=== PATIENT | female | born 1995 | race Caucasian/White ===

== ENCOUNTER 2019-06-15 06:25 | Inpatient (IN) ==
[2019-06-15] MEDS ORDERED: NS 100 ML IV 100 ML IV ONE ×3 (06:31→15:08)
[2019-06-15] MEDS ORDERED: D5LR 1L W PITOCIN 10 UNITS/L 10 UNITS/1,000 ML BAG IV ONE (06:31)
[2019-06-15] MEDS ORDERED: D5 1/2 NS 1000 ML 1,000 ML IV ONE ×2 (06:32→18:02)
[2019-06-15] MEDS ORDERED: AMPICILLIN VIAL 2 GRAM ONE (06:32)
--- NOTE | 2019-06-15 07:08 | DR.OB ---
OB Quick Note - Assessment/Plan Assessment/Plan: L&D 06/15/19 at 7:00am S-No complaint. O-Afebrile,VSS EMI=332 with good LTV, +accel, no decel. CTX=none CVX=2cm/50%/-1/VTX AROM with clear fluid. IUPC and FSE placed. A-IUP at 40 3/7 weeks for induction +GBS Abnormal quad screen P-Begin pitocin induction IV ABX in labor Anticipate
[2019-06-15] MEDS ORDERED: MORPHINE SULFATE INJ 2 MG INJ IVP PRN (07:25)
[2019-06-15] MEDS ORDERED: AMPICILLIN VIAL 2 GRAM 2 G in NS 100 ML IV + SPIKE MINIBAG* 100 ML IV SCH (07:25)
[2019-06-15] MEDS ORDERED: PHENERGAN INJ 25 MG IM PRN ×2 (07:25→20:28)
[2019-06-15] MEDS ORDERED: D5LR 1L W PITOCIN 10 UNITS/L 10 UNITS/1,000 ML BAG IV PRN (07:25)
[2019-06-15] MEDS ORDERED: PITOCIN IVP ONE (07:25)
[2019-06-15] MEDS ORDERED: NUBAIN INJ 200 MG VIAL MULTIDOSE IVP PRN (07:25)
[2019-06-15] MEDS ORDERED: REGLAN INJ 10 MG VIAL IVP PRN (07:25)
[2019-06-15] MEDS: VSL#3 PO SCH ×2 (07:56→09:35)
[2019-06-15] MEDS: AMPICILLIN VIAL 1 GRAM 1 G in NS 50 ML IV + SPIKE MINIBAG* 50 ML IV SCH ×4 (07:56→15:34)
[2019-06-15] MEDS: D5 1/2 NS 1000 ML 1,000 ML IV SCH ×2 (07:57→21:14)
[2019-06-15] MEDS ORDERED: AMPICILLIN VIAL 1 GRAM ONE ×2 (11:00→15:08)
[2019-06-15] MEDS ORDERED: LR 1000 ML IV 1,000 ML IV ONE (11:33)
[2019-06-15] MEDS ORDERED: FENTANYL INJ 100 mcg ONE (11:34)
[2019-06-15] MEDS ORDERED: NAROPIN EPIDURAL 0.2% + FENTANYL 90MCG 60 ML EPI ONE ×2 (11:34→17:49)
--- NOTE | 2019-06-15 12:09 | DR.OB ---
OB Quick Note - Assessment/Plan Assessment/Plan: L&D 06/15/19 at 12:00pm Pitocin=8mu/min. Ampicillin S-No complaint except pain with CTX. O-Afebrile,VSS FRL=674 with good LTV, +accel, no decel. CTX=q 1 1/2 to 2 min., about 45-65mmHg CVX=4cm/75%/-1 A-IUP at 40 3/7 weeks for induction +GBS Abnormal quad screen P-Cont. pitocin induction and ABX in labor Anticipate
[2019-06-15] MEDS ORDERED: EPHEDRINE SULFATE INJ ONE (13:41)
[2019-06-15] MEDS ORDERED: D5 1/2 NS 1L W PITOCIN 20 UNITS/L 20 UNITS/1,000 ML BAG IV ONE (15:09)
--- NOTE | 2019-06-15 17:09 | DR.OB ---
OB Quick Note - Assessment/Plan Assessment/Plan: L&D 06/15/19 at 5:00pm Pitocin=6mu/min. Ampicillin S-No complaint. s/p epidural. O-Afebrile,VSS OLY=633 with good LTV, +accel, no decel. CVX=8cm/100%/0 CTX=q 1 1/2 to 2 min., about 55-65mmHg A-IUP at 40 3/9 weeks for induction +GBS Abnormal quad screen P-Cont. pitocin induction/ABX in labor Anticipate
[2019-06-15] MEDS ORDERED: HYDROGEN PEROXIDE 3% ONE (20:27)
--- NOTE | 2019-06-15 20:28 | DR.OB ---
OB Quick Note - Assessment/Plan Assessment/Plan: Delivery Note [employer] 06/15/19 at 8:20pm Patient complete and pushing. Head delivered over midline episiotomy. No nuchal cord. Nose and mouth bulb suctioned. Body delivered over episiotomy. Cord clamped x 2 and cut. handed to attendant. Late meconium noted. Cord sent for gases. Placenta delivered spontaneously / intact / 3vessel cord. No CVX tears. A second degree midline episiotomy noted and repaired with 0- vicryl in usual fashion. Viable male infant, VTX/OA, wt=7'3" and 3/5/8, stable to NBN. Mother stable to RR. YSC=742pi.
[2019-06-15] MEDS ORDERED: D5 1/2 NS 1000 ML 1,000 ML with PITOCIN 20 UNITS IV SCH ×2 (21:00)
[2019-06-15] MEDS ORDERED: DERMOPLAST SPRAY TOP PRN (21:12)
[2019-06-15] MEDS ORDERED: AMBIEN PO PRN (21:12)
[2019-06-15] MEDS ORDERED: MILK OF MAGNESIA PO PRN (21:12)
[2019-06-15] MEDS ORDERED: ADACEL or BOOSTRIX TDaP VACCINE IM ONE (21:12)
[2019-06-16 05:23] LABS: HEMATOCRIT 30.3 % (36.0-47.0); HEMOGLOBIN 10.3 g/dL (12.0-16.0)
[2019-06-16] MEDS: PRENATAL PLUS PO SCH (09:41)
[2019-06-16] MEDS: MOTRIN TAB 800 MG PO PRN ×2 (12:45→20:51)
[2019-06-16] MEDS ORDERED: ADACEL or BOOSTRIX TDaP VACCINE IM ONE (13:00)
[2019-06-17] MEDS ORDERED: ZOFRAN TAB 4 MG ONE (04:27)
[2019-06-17] MEDS ORDERED: ZOFRAN TAB 4 MG PO ONE (04:27)
[2019-06-17] MEDS ORDERED: PHENERGAN INJ 25 MG IM ONE ×2 (05:47→05:48)
[2019-06-17] MEDS: PRENATAL PLUS PO SCH (10:49)
[2019-06-17 17:08] VITALS: BP 91/64
== END 2019-06-17 17:20 | disposition home or self-care (01) | DRG 807 ==
LOC: LD 06:25 → MED/SURG 21:28
PROVIDERS: ADMIT Specialist; ATTEND Specialist
DX: B95.1 Streptococcus, group B, as the cause of diseases classified elsewhere; O99.824 Streptococcus B carrier state complicating childbirth; Z23 Encounter for immunization; O28.5 Abnormal chromosomal and genetic finding on antenatal screening of mother; O70.1 Second degree perineal laceration during delivery; Z37.0 Single live birth; Z3A.40 40 weeks gestation of pregnancy
CPT/HCPCS: 36415; 59409; 85014; 85018; 90715; A4216; A4222; S0197; J0290; J2550; J2590; J3010; J3490; J7050; J7120; S0119; S0181; S5010

== ENCOUNTER 2020-09-22 22:47 | Inpatient (IN) ==
--- NOTE | 2020-09-22 23:03 | DR.PREG ---
HPI Time seen Time Seen by Provider: 09/22/20 22:59 HPI Comment HPI Comment: OB PATIENT/SEE DR. AMBROSE DOCUMENTATON. NOT SEEN BY ER PYSICIAN. PE Vital Signs Vitals: Blood Pressure [Right Arm] 91/64 Opioid Opioid Risk Tool Age (Jose E box if 16-45): Yes History of Preadolescent Sexual Abuse: No Total: 1 Total Score Risk Category: Low Risk Copyright: Srinivasan DISLA predicting aberrant behaviors Diagnosis Discharge Problem: Active labor Instructions Forms: Precautions for COVID19 Patient Portal Social Distancing
[2020-09-22] MEDS ORDERED: D5 1/2 NS 1000 ML 1,000 ML IV ONE (23:06)
[2020-09-22 23:12] LABS: BILIRUBIN,URINE NEGATIVE (NEGATIVE); BLOOD/HEMOGLOBIN,URINE 3+ (NEGATIVE); GLUCOSE, URINE NEGATIVE (NEGATIVE); KETONES,URINE NEGATIVE (NEGATIVE); LEUKOCYTE ESTERASE ,URINE 1+ (NEGATIVE); NITRITES,URINE NEGATIVE (NEGATIVE); PROTEIN,URINE NEGATIVE (NEGATIVE); UROBILINOGEN,URINE NORMAL (NORMAL)
[2020-09-22 23:13] VITALS: BMI 34.5
[2020-09-22] MEDS: D5 1/2 NS 1000 ML 1,000 ML IV SCH (23:19)
[2020-09-22 23:20] LABS: APPEARANCE,URINE CLEAR (CLEAR); BACTERIA,URINE TRACE /HPF (NEGATIVE); COLOR,URINE YELLOW (YELLOW); SQUAMOUS EPITHELIAL CELL,UR NUMEROUS /HPF (NEGATIVE)
[2020-09-22 23:21] LABS: AMORPHOUS SEDIMENT,UR 1+ /HPF (NEGATIVE)
[2020-09-22 23:22] LABS: AMNISURE ROM TEST THERE IS A RUPTURE (NO RUPTURE)
[2020-09-22 23:33] LABS: BASOPHILS # (AUTO) 0.1 X10^3/uL (0.0-0.1); BASOPHILS % (AUTO) 0.6 % (0.2-1.0); EOSINOPHILS # (AUTO) 0.1 x10^3/uL (0.0-0.2); EOSINOPHILS % (AUTO) 0.6 % (0.9-2.9); HEMATOCRIT 37.5 % (36.0-47.0); HEMOGLOBIN 12.3 g/dL (12.0-16.0); LYMPHOCYTES # (AUTO) 2.6 X10^3/uL (1.3-2.9); LYMPHOCYTES % (AUTO) 21.6 % (21.0-51.0); MEAN CORPUSCULAR HEMOGLOBIN 27.8 pg (27.0-34.0); MEAN CORPUSCULAR HGB CONC 32.8 g/dL (33.0-35.0); MEAN CORPUSCULAR VOLUME 84.7 fL (80.0-100.0); MEAN PLATELET VOLUME 9.4 fL (7.4-11.0); MONOCYTES # (AUTO) 0.7 x10^3/uL (0.3-0.8); MONOCYTES % (AUTO) 5.6 % (0.0-13.0); NEUTROPHILS # (AUTO) 8.8 x10^3/uL (2.2-4.8); NEUTROPHILS % (AUTO) 71.6 % (42.0-75.0); PLATELET COUNT 245 X10^3/uL (150.0-450.0); RED BLOOD COUNT 4.43 X10^6/uL (3.5-5.4); RED CELL DISTRIBUTION WIDTH 14.7 % (11.6-16.5); WHITE BLOOD COUNT 12.2 X10^3/uL (3.6-10.0)
[2020-09-22 23:41] LABS: ALANINE AMINOTRANSFERASE 20 Units/L (12-78); ALBUMIN 2.7 g/dL (3.4-5.0); ALKALINE PHOSPHATASE 127 Units/L (46-116); ASPARTATE AMINO TRANSFERASE 17 Units/L (15-37); BLOOD UREA NITROGEN 6 mg/dL (7-18); CALCIUM 9.1 mg/dL (8.5-10.1); CARBON DIOXIDE 23.4 mmol/L (21-32); CHLORIDE 102 mmol/L (98-107); COR CA(FOR HYPOALB) 10.1 mg/dL (8.5-10.1); CREATININE 0.63 mg/dL (0.55-1.02); SODIUM 138 mmol/L (136-145); TOTAL PROTEIN 7.2 g/dL (6.4-8.2); eGFR NON BLACK RACES > 60 (>60)
[2020-09-23] MEDS ORDERED: BETADINE SOLN ONE (00:03)
[2020-09-23] MEDS ORDERED: PITOCIN ONE (00:03)
[2020-09-23] MEDS ORDERED: D5 1/2 NS 1L W PITOCIN 20 UNITS/L 20 UNITS/1,000 ML BAG IV ONE (00:04)
[2020-09-23] MEDS ORDERED: D5LR 1L W PITOCIN 10 UNITS/L 10 UNITS/1,000 ML BAG IV ONE (00:04)
[2020-09-23] MEDS ORDERED: FENTANYL INJ 100 mcg ONE (00:05)
[2020-09-23] MEDS ORDERED: NAROPIN EPIDURAL 0.2% 100 ML ONE (00:05)
[2020-09-23] MEDS ORDERED: AMPICILLIN VIAL 2 GRAM ONE (00:05)
[2020-09-23] MEDS ORDERED: LR 1000 ML IV 1,000 ML IV ONE (00:05)
[2020-09-23] MEDS ORDERED: NS 100 ML IV 100 ML IV ONE ×2 (00:06→03:35)
--- NOTE | 2020-09-23 01:49 | DR.OB ---
OB Quick Note - Assessment/Plan Assessment/Plan: L&D 09/23/20 at 1:25am S-No complaint except CTX. O-Afebrile,VSS XIS=559 with good LTV, +accel, no decel. CTX=q 1 1/2 to 2 min., strong by palpation CVX=3cm/50%/-1/VTX SROM noted with clear fluid. IUPC and FSE placed. A-IUP at 40 1/7 weeks with SROM and active labor +GBS P-Begin pitocin augmentation as needed. IV ABX in labor F/U labs Anticipate
[2020-09-23] MEDS ORDERED: DILAUDID INJ IVP PRN (02:19)
[2020-09-23] MEDS ORDERED: MORPHINE SULFATE INJ 2 MG INJ IVP PRN (02:19)
[2020-09-23] MEDS ORDERED: D5LR 1L W PITOCIN 10 UNITS/L 10 UNITS/1,000 ML BAG IV PRN (02:19)
[2020-09-23] MEDS ORDERED: REGLAN INJ 10 MG VIAL IVP PRN (02:19)
[2020-09-23] MEDS ORDERED: PHENERGAN INJ 25 MG IM PRN ×2 (02:19→09:34)
[2020-09-23] MEDS ORDERED: PITOCIN IVP ONE (02:19)
[2020-09-23] MEDS ORDERED: STADOL INJ IVP PRN (02:21)
[2020-09-23] MEDS ORDERED: AMPICILLIN VIAL 2 GRAM 2 G in NS 100 ML IV + SPIKE MINIBAG* 100 ML IV SCH (03:00)
[2020-09-23] MEDS ORDERED: D5 1/2 NS 1000 ML 1,000 ML IV SCH (03:00)
[2020-09-23] MEDS ORDERED: XYLOCAINE 1 % (PLAIN) ONE (03:34)
[2020-09-23] MEDS ORDERED: AMPICILLIN VIAL 1 GRAM ONE (03:35)
[2020-09-23] MEDS ORDERED: FLEXERIL TAB 10 MG ONE (06:46)
--- NOTE | 2020-09-23 06:47 | DR.OB ---
OB Quick Note - Assessment/Plan Assessment/Plan: L&D 09/23/20 at 6:40am Pitocin=2mu/min. Ampicillin S-No complaint. s/p epidural. O-Afebrile,VSS VNM=692 with good LTV, +accel, no decel. CTX=q 1 1/2 to 3 min., about 35-65mmHg CVX=4-5cm/75%/-1/VTX A-IUP at 40 1/7 weeks in labor with SROM +GBS P-Cont. pitocin/IV ABX in labor Anticipate
[2020-09-23] MEDS: FLEXERIL TAB 10 MG PO PRN ×2 (06:50→14:20)
--- NOTE | 2020-09-23 09:34 | DR.OB ---
OB Quick Note - Assessment/Plan Assessment/Plan: Delivery Note LIST OF FIRST JOB IDEAS 09/23/20 at 9:13 am Patient complete and pushing. Head delivered over intact perineum. No nuchal cord. Nose and mouth bulb suctioned. Body delivered over intact perineum. Cord clamped x 2 and cut. Infant handed to attendant. Cord sent for gases. Placenta delivered spontaneously / intact / 3 vessel cord. No CVX tears. A small midline second degree tear noted and repaired with 0-vicryl in usual fashion. Viable female delivered easily, VTX/OA, wt=7'9" and 9/9, stable to NBN. Mother stable to RR. VMO=[id number].
[2020-09-23] MEDS: D5 1/2 NS 1000 ML 1,000 ML with PITOCIN 20 UNITS IV SCH ×4 (10:00→19:41)
[2020-09-23] MEDS ORDERED: AMBIEN PO PRN (11:03)
[2020-09-23] MEDS: D5 1/2 NS 1000 ML 1,000 ML IV SCH (11:03)
[2020-09-23] MEDS ORDERED: ADACEL or BOOSTRIX TDaP VACCINE IM ONE (11:03)
[2020-09-23] MEDS ORDERED: DERMOPLAST PAIN RELIEF SPRAY TOP PRN (11:03)
[2020-09-23] MEDS ORDERED: MILK OF MAGNESIA PO PRN (11:03)
[2020-09-23] MEDS: MOTRIN TAB 800 MG PO PRN ×2 (12:10→20:04)
[2020-09-23] MEDS ORDERED: VOLTAREN 1 % GEL MULTI DOSE TUBE TOP PRN (19:51)
[2020-09-23] MEDS ORDERED: VOLTAREN 1 % GEL MULTI DOSE TUBE ONE (19:52)
[2020-09-24] MEDS: D5 1/2 NS 1000 ML 1,000 ML with PITOCIN 20 UNITS IV SCH ×2 (03:09)
[2020-09-24 04:46] LABS: HEMATOCRIT 34.1 % (36.0-47.0)
[2020-09-24] MEDS ORDERED: PRENATAL PLUS PO SCH (09:00)
[2020-09-24] MEDS ORDERED: ADACEL or BOOSTRIX TDaP VACCINE IM ONE (10:00)
[2020-09-24 13:16] VITALS: BP 110/61
== END 2020-09-24 13:35 | disposition home or self-care (01) | DRG 807 ==
LOC: ER 22:47 → LD 23:44 → MED/SURG 09-23 11:13
PROVIDERS: ADMIT Specialist; ATTEND Specialist
DX: Z23 Encounter for immunization; Z3A.40 40 weeks gestation of pregnancy; Z37.0 Single live birth; O99.824 Streptococcus B carrier state complicating childbirth; B95.1 Streptococcus, group B, as the cause of diseases classified elsewhere; O70.1 Second degree perineal laceration during delivery